=== PATIENT | male | born 1995 | race African-American/Black ===

== ENCOUNTER 2017-02-08 17:31 | Inpatient (IN) | payer OTHER ==
--- NOTE | ~2017-02-08 | PA ---
Unit #: [id number] #: [id number] Patient: MARQUIS YANIQUE [id number] [facility] [address] [place] [address] [id number] MR#: [id number] NAME: MARQUIS YANIQUE ROOM: P207 Age: 21 Sex: M Admission Date: 02/08/2017 : 1995 Date of Assessment: 02/09/2017 Attending Physician: Luis F Baxter M.D. Admitting Physician: Luis F Baxter M.D. Primary Care Physician: Primary Care Physician No PSYCHIATRIC ASSESSMENT IDENTIFYING INFORMATION The patient is a 21-year-old male admitted after he had voiced suicidal ideation to his mother. INFORMANT(S) Patient and chart. RELIABILITY Good. CHIEF COMPLAINT None given. HISTORY OF PRESENT ILLNESS The patient is a 21-year-old male admitted reporting positive suicidal ideation. The patient reports that he had a fight with his brother and girlfriend that had led to these thoughts. The patient reports that this is the first time he has ever experienced such thinking and he became tearful but now vehemently denies any suicidal ideation. He denies prior suicide attempts or gestures. He recently started work at [employer] and is fearful that he may lose that job if he stays in the hospital. The patient reports a history of some issues with anger but does not elaborate. He does admit to abuse of occasional alcohol as well as cannabis. He denies abuse of other psychoactive substances. He lives with his mother. He is at this point denying any recent changes in sleep or appetite or any psychotic symptoms. He denies any history of racing thoughts of symptoms consistent with a bipolar spectrum disorder. PAST PSYCHIATRIC HISTORY As above. FAMILY HISTORY Noncontributory. SOCIAL HISTORY The patient lives with his mother. He is a high school graduate and recently started a new job at [employer]. He reports occasional use of cannabis and alcohol. MEDICAL HISTORY Noncontributory. MEDICATION HISTORY Unit #: [id number] #: [id number] Patient: MARQUIS YANIQUE None. ALLERGIES None. MENTAL STATUS EXAM At this time, reveals the patient to be a well-developed, well-nourished male appearing his stated age. He is in no apparent physical distress at the time of the examination. He is awake, alert, and oriented in all spheres. His mood is euthymic. His affect full range. Speech is generally relevant and coherent. There are no gross deficits in memory or cognition noted. Intelligence is judged to be in the average range based on fund of knowledge. The patient is cooperative throughout the interview. He is currently denying suicidal/homicidal ideation or psychotic features. Judgement and insight appear to be intact. ASSETS AND LIABILITIES Patient's assets, motivation for change, supportive family. Liabilities, none noted. ADMITTING DIAGNOSES 1. Dysthymic disorder. 2. Cannabis use disorder. PSYCHIATRIC PLAN/TREATMENT GOALS At this point, the patient is denying any suicidal or homicidal ideation and is requesting discharge from the hospital. I have discussed discharge planning with the patient's mother who is in agreement therewith. The patient does not at this point wish to begin treatment with any antidepressant or other psychotropic medication but is agreeable with a plan for follow up through the auspices of [facility] for psychotherapy. Discharge will be ordered. Dictated by... Luis F Baxter M.D. MICHAELA/lico TD: 02/09/2017 15:03 JOB #: [id number] PSYCHIATRIC ASSESSMENT Page 1 of 1 X Luis F Baxter MD X PSYCHIATRIC ASSESSMENT
--- NOTE | ~2017-02-08 | DS ---
Unit #: [id number] #: [id number] Patient: MARQUIS YANIQUE [id number] [facility] [address] [place] [address] [id number] MR#: [id number] NAME: MARQUIS YANIQUE ROOM: [facility] Age: 21 Sex: M Admission Date: 02/08/2017 : 1995 Discharge Date: 02/09/2017 Attending Physician: Luis F Baxter M.D. Primary Care Physician: Primary Care Physician No DISCHARGE SUMMARY REASON FOR ADMISSION The patient is a 21-year-old male admitted with increasing depression and suicidal ideation. HOSPITAL COURSE The patient is admitted to the [address] [place] [address] and placed on suicidal precautions. He was seen by this physician on the morning of 02/09/2017. At that time he vehemently denied suicidal ideation stated that he had been involved in an argument with family member prior to coming to the hospital. The patient vehemently denied thoughts of suicide. He did discuss some issues with anger management but stated that he did not wish to begin medication for this condition. He was agreeable with a plan for followup through the [facility] of [facility]. He was not felt to meet criteria for involuntary hospitalization and discussion with the patient's mother indicated that she was comfortable with him coming home with outpatient psychiatric followup to be arranged. Discharge was ordered. FINAL DIAGNOSIS 1. Dysthymic disorder. 2. Cannabis use disorder. DISPOSITION ON DISCHARGE No psychotropic medicines are ordered at the time of discharge. Followup to take place through the auspices of [facility]. The patient's prognosis is considered fair. Dictated by... Luis F Baxter M.D. CB/demian TD: 02/10/2017 00:10 JOB #: [id number] Unit #: [id number] #: [id number] Patient: MARQUIS YANIQUE DISCHARGE SUMMARY Page 1 of 1 X Luis F Baxter MD X DISCHARGE SUMMARY
--- NOTE | ~2017-02-08 | HP ---
Unit #: [id number] #: [id number] Patient: MARQUIS YANIQUE [id number] [facility] [address] [place] [address] [id number] MR#: [id number] NAME: MARQUIS YANIQUE ROOM: [facility] Age: 21 Sex: M Admission Date: 02/08/2017 : 1995 Attending Physician: Luis F Baxter M.D. Admitting Physician: Luis F Baxter M.D. Primary Care Physician: Primary Care Physician No HISTORY AND PHYSICAL is a 21 year old who was admitted and discharged within the first 24 hours. He was not seen for an H and P. Dictated by... Beth Mackay P.A.-C. for Felipe Talavera/lico TD: 02/09/2017 21:28 JOB #: [id number] HISTORY AND PHYSICAL Page 1 of 1 X Beth Mackay X HISTORY AND PHYSICAL
[2017-02-10 09:45] LABS: URINE APPEARANCE CLEAR; URINE BILIRUBIN NEG (NEG); URINE BLOOD NEG (NEG); URINE COLOR YELLOW; URINE GLUCOSE NEG (NEG); URINE KETONE 2+ (NEG); URINE LEUKOCYTE ESTERASE NEG (NEG); URINE NITRATE NEG (NEG); URINE PROTEIN NEG (NEG); URINE SPECIFIC GRAVITY 1.025 (1.003-1.035); URINE UROBILINOGEN 0.2 MG/DL (NEG)
[2017-02-10 10:18] LABS: AMPHETAMINE NEG (NEG); BARBITURATES NEG (NEG); BENZODIAZEPINES NEG (NEG); COCAINE NEG (NEG); MARIJUANA POS (NEG); OPIATES NEG (NEG); TRICYCLIC ANTIDEPRESSANTS NEG (NEG); U METHADONE NEG (NEG)
== END 2017-02-09 14:50 | disposition home or self-care (01) | DRG 881 ==
LOC: P2S 19:18
PROVIDERS: Specialist
DX: F34.1 Dysthymic disorder (principal); R45.851 Suicidal ideations; F12.10 Cannabis abuse, uncomplicated
CPT/HCPCS: 80307; 81003